=== PATIENT | male | born 1965 | race African-American/Black ===

== ENCOUNTER 2020-12-18 03:23 | Emergency (ER) | payer MEDICAID ==
[~2020-12-18] VITALS: Ht 170.2 cm; Wt 71.1 kg
[2020-12-18 03:28] VITALS: BP 121/79
--- NOTE | 2020-12-18 03:32 | NUR ---
Patient BIBA c/o epigastric pain into his chest which started yesterday around 1500. When asked if SOB, patient states, "my throat feels funny." Denies N/V. Patient states sometime within the last 30 days he was seen elsewhere for the same pain; patient is unaware of his dx. States he has a hx of acid reflux. 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 Denies leg pain or swelling. 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 Patient is in NAD. Respirations even and unlabored.
--- NOTE | 2020-12-18 04:14 | NUR ---
Patient up to BR.
[2020-12-18] MEDS ORDERED: MAALOX/HYOSCYAMINE/LIDOCAINE 45 ML BTL PO ONE (04:30)
[2020-12-18] MEDS ORDERED: AZITHROMYCIN 500 MG TABLET PO ONE (04:30)
[2020-12-18] MEDS ORDERED: CEFTRIAXONE 1,000 MG IM ONE (04:30)
[2020-12-18] MEDS ORDERED: MAALOX/HYOSCYAMINE/LIDOCAINE 45 ML BTL ONE (04:32)
[2020-12-18] MEDS ORDERED: AZITHROMYCIN 250 MG TABLET ONE (04:32)
[2020-12-18] MEDS ORDERED: CEFTRIAXONE 1,000 MG ONE (04:32)
[2020-12-18 04:46] LABS: BASOPHILS % (AUTO) 1 % (0-1); EOSINOPHILS % (AUTO) 3 % (1-7); LYMPHOCYTES % (AUTO) 31 % (22-44); MEAN CORPUSCULAR HEMOGLOBIN 29.3 pg (27.5-34.5); MEAN CORPUSCULAR HGB CONC 34.2 g/dL (33.2-36.2); MEAN PLATELET VOLUME 9.3 fL (7.4-10.4); MONOCYTES % (AUTO) 8 % (2-9); NEUTROPHILS % (AUTO) 57 % (42-75); PLATELET COUNT 226 x10^3/uL (130-400); RED BLOOD COUNT 5.67 x10^6/uL (4.38-5.82); RED CELL DISTRIBUTION WIDTH 16.4 % (9.4-14.8)
[2020-12-18 04:59] LABS: ALANINE AMINOTRANSFERASE 31 U/L (12-78); ALBUMIN 3.4 g/dL (3.4-5.0); ANION GAP 6 mmol/L (5-15); CALCIUM 8.7 mg/dL (8.5-10.1); CHLORIDE 108 mmol/L (98-107); CREATININE 0.89 mg/dL (0.7-1.3)
[2020-12-18] MEDS ORDERED: PLEASE ENTER ALLERGIES MC SCH (05:00)
[2020-12-18 05:03] LABS: ALKALINE PHOSPHATASE 70 U/L (45-117); BILIRUBIN,TOTAL 0.5 mg/dL (0.2-1.0); TOTAL PROTEIN 6.9 g/dL (6.4-8.2); TROPONIN I < 0.015 ng/mL (0.000-0.045)
[2020-12-18 05:14] LABS: MD SCAN
== END 2020-12-18 05:51 | disposition home or self-care (01) ==
LOC: ED 05:27
DX: K29.00 Acute gastritis without bleeding (principal); A64 Unspecified sexually transmitted disease; R07.9 Chest pain, unspecified; R00.1 Bradycardia, unspecified; K21.9 Gastro-esophageal reflux disease without esophagitis
CPT/HCPCS: 36415; 71045; 80053; 83690; 84484; 85025; 87491; 87591; 93005; 96372; 99285; J0696